=== PATIENT | female | born 1960 | race American Indian/Alaskan Native ===

== ENCOUNTER 2016-10-04 09:01 | Emergency (ER) | payer MEDICAID ==
[2016-10-04 09:09] VITALS: BP 140/92; PULSE 74; RESP 18; TEMP 98; O2SAT 97
[2016-10-04 09:10] VITALS: BMI 23.9
--- NOTE | 2016-10-04 09:44 | ED PDOC ---
Upper Extremity Pain/Injury Time Seen by Provider: 10/04/16 09:25 Chief Complaint (Nursing): Upper Extremity Problem/Injury Chief Complaint (Provider): Wrist pain History Per: Patient History/Exam Limitations: no limitations Onset/Duration Of Symptoms: Days (Yesterday) Current Symptoms Are (Timing): Still Present Additional Complaint(s): L wrist pain going into the the hand. Started hurting after lifting a gallon of water and then dropping it. Did not land on hand but possibly twisted it. No numbness, tingles, weakness. Has chronic right wrist pain, which pt. is on percocet for. No chest pain, drugs, etoh. Past Medical History Reviewed: Nursing Documentation, Vital Signs Vital Signs: Last Vital Signs Temp 98.0 F 10/04/16 09:08 Pulse 74 10/04/16 09:08 Resp 18 10/04/16 09:08 BP 140/92 H 10/04/16 09:08 Pulse Ox 97 10/04/16 09:08 - Medical History PMH: Asthma, HIV, HTN Other PMH: chronic pain - Surgical History Surgical History: (x 3) Other surgeries: wrist surgery - Family History Family History: States: Unknown Family Hx - Living Arrangements Living Arrangements: With Family - Social History Alcohol: None Drugs: Denies - Home Medications Home Medications: Ambulatory Orders Medication Instructions Recorded Ibuprofen [Motrin] 600 mg PO TID 7 Days 10/04/16 - Allergies Allergies/Adverse Reactions: Allergies Allergy/AdvReac Type Severity Reaction Status Date / Time No Known Allergies Allergy Verified 09/22/15 14:59 Review of Systems Constitutional: Negative for: Weakness Cardiovascular: Negative for: Chest Pain Musculoskeletal: Positive for: Arm Pain, Hand Pain. Negative for: Neck Pain, Shoulder Pain, Back Pain, Leg Pain, Foot Pain Skin: Negative for: Rash, Lesions Neurological: Negative for: Weakness, Numbness Physical Exam - Reviewed Nursing Documentation Reviewed: Yes Vital Signs Reviewed: Yes - Physical Exam Appears: Positive for: Well, Non-toxic, No Acute Distress Skin: Positive for: Normal Color, Warm, DRY Neck: Positive for: Normal, Painless ROM Cardiovascular/Chest: Positive for: Regular Rate, Rhythm Respiratory: Positive for: CNT, Normal Breath Sounds Pulses-Radial (L): 2+ Extremity: Positive for: Normal ROM, Tenderness (L wrist dorsal mild; no swelling or erythema; no snuff box tenderness). Negative for: Pedal Edema Neurologic/Psych: Positive for: Alert, Oriented. Negative for: Motor/Sensory Deficits (has full range of motion) - ECG O2 Sat by Pulse Oximetry: 97 Pulse Ox Interpretation: Normal - Radiology X-Ray: Interpreted by Me, Viewed By Me X-Ray Interpretation: No Acute Disease - Progress ED Course And Treament: 1111: Stable. AAOx3. Improved pain. Has underlying chronic pain. Fu with pain management. Disposition - Clinical Impression Clinical Impression: Wrist injury - Patient ED Disposition Is Patient to be Admitted: No Counseled Patient/Family Regarding: Studies Performed, Diagnosis, Need For Followup, Rx Given - Disposition Referrals: [facility] [Outside] - 10/07/16 Disposition: Routine/Home Disposition Time: 11:11 Condition: STABLE Additional Instructions: Return if not better in 3 days. Prescriptions: Ibuprofen [Motrin] 600 mg PO TID 7 Days Instructions: Wrist Injury (ED)
--- NOTE | 2016-10-04 12:11 | RAD ---
PROCEDURE: Left Wrist Radiographs. HISTORY: pain COMPARISON: None. FINDINGS: BONES: Normal. No fracture. JOINTS: Normal. No dislocation. SOFT TISSUES: Normal. OTHER FINDINGS: None. IMPRESSION: No radiographic evidence of acute fracture or dislocation.
== END 2016-10-04 11:56 | disposition home or self-care (01) ==
LOC: H.ER 09:01
DX: M25.532 Pain in left wrist (principal); G89.29 Other chronic pain; I10 Essential (primary) hypertension; J45.909 Unspecified asthma, uncomplicated

== ENCOUNTER 2018-02-14 06:29 | Emergency (ER) | payer MEDICAID ==
[2018-02-14 06:29] VITALS: BMI 23.9
--- NOTE | 2018-02-14 08:49 | ED PDOC ---
Lower Extremity Pain/Injury Time Seen by Provider: 02/14/18 07:58 Chief Complaint (Nursing): Lower Extremity Problem/Injury History Per: Patient Additional Complaint(s): 57 y/o F presents to ED complaining of R knee pain since yesterday after a fall. Pt explains her R knee gave out while walking and fell over her R side to the floor. Pain is 9/10, constant, sharp and pressure-like, and not alleviating. Pt takes PO Oxycodone chronically as she had a R forearm fracture 5 years ago that required surgery. Pt explains taking Oxycodone not daily but at least twice a week when pain is severe. Last dose yesterday but no alleviation of pain. Pt went to PMD this morning and was sent here for acute care. Pt denies R hip pain, numbness, tingling or burning sensation. ROS: all systems reviewed and negative except as above. PMD: Dr Burgess at [facility] Meds: HIV med, oxycodone. NKA PMHx: HIV infection, asthma PSHx: R forearm fracture and FHx: NC SHx: denied alcohol, tobacco or rec drugs. Past Medical History - Medical History PMH: Asthma, HIV, HTN - Surgical History Surgical History: (x 3) - Family History Family History: States: Unknown Family Hx - Home Medications Home Medications: Ambulatory Orders Medication Instructions Recorded Ibuprofen [Motrin] 600 mg PO TID 7 Days tab 10/04/16 Naproxen [Naprosyn] 500 mg PO Q12H #20 tab 02/14/18 - Allergies Allergies/Adverse Reactions: Allergies Allergy/AdvReac Type Severity Reaction Status Date / Time No Known Allergies Allergy Verified 09/22/15 14:59 Review of Systems Constitutional: Negative for: Fever, Chills, Sweats Eyes: Negative for: Pain ENT: Negative for: Nose Congestion, Throat Pain Cardiovascular: Negative for: Chest Pain, Palpitations Respiratory: Negative for: Cough, Shortness of Breath Gastrointestinal: Negative for: Nausea, Vomiting, Abdominal Pain, Diarrhea, Constipation Musculoskeletal: Positive for: Leg Pain (R knee and lower leg pain.). Negative for: Back Pain Skin: Negative for: Rash Neurological: Negative for: Numbness, Dizziness Physical Exam - Physical Exam Appears: Positive for: No Acute Distress Head Exam: Positive for: ATRAUMATIC, NORMAL INSPECTION Eye Exam: Positive for: Normal appearance, EOMI Neck: Positive for: Normal, Painless ROM, Supple Cardiovascular/Chest: Positive for: Regular Rate, Rhythm Respiratory: Positive for: Normal Breath Sounds Gastrointestinal/Abdominal: Positive for: Normal Exam, Bowel Sounds, Soft. Negative for: Tenderness Extremity: Positive for: Other (R knee: presence of ecchymosis over lateral knee, tender to palpation over patella and lateral area, SILT, reduced active ROM due to pain, Lisette's negative, Varus and Valgus stress test appears to be negative, patellar reflex intact. ) Medical Decision Making Medical Decision Making: At 08:30, after examining patient, no R hip pain. --will administer Toradol foe pain and inflammation --X-ray of R knee. At 09:10, X-ray of knee was reviewed and results discussed with patient. No fracture on X-ray. Pt reports pain has improved with medication. --Pt instructed to follow conservative management, use of a victorino bandage for support on knee and take Naproxen for pain and anti-inflammation. --Pt discharged home, instructed to return if no improvement of pain in 3 days, return to PMD within 1 week for f/u. Disposition - Clinical Impression Clinical Impression: Knee sprain - Patient ED Disposition Is Patient to be Admitted: No - Disposition Disposition: Routine/Home Disposition Time: 09:18 Condition: IMPROVED Prescriptions: Naproxen [Naprosyn] 500 mg PO Q12H #20 tab Instructions: Knee Sprain (DC) Forms: [employer] (Greek)
--- NOTE | 2018-02-14 08:54 | RAD ---
Date of service: 02/14/2018 PROCEDURE: Right Knee Radiographs. HISTORY: R knee pain s/p fall COMPARISON: None. FINDINGS: BONES: Normal. No fracture. JOINTS: Very mild degenerative changes. No loose body identified. No tibial plateau depression. JOINT EFFUSION: None. OTHER FINDINGS: None. IMPRESSION: No evidence of fracture.
[2018-02-14 09:20] VITALS: BP 137/82; PULSE 67; RESP 16; TEMP 98.3; O2SAT 98
== END 2018-02-14 09:16 | disposition home or self-care (01) ==
LOC: H.ER 06:29
DX: S83.91XA Sprain of unspecified site of right knee, initial encounter (principal); W19.XXXA Unspecified fall, initial encounter; Y92.89 Other specified places as the place of occurrence of the external cause; I10 Essential (primary) hypertension
CPT/HCPCS: 73562; 96372; 99284; J1885

== ENCOUNTER 2018-03-08 07:43 | Emergency (ER) | payer MEDICAID ==
[2018-03-08 07:51] VITALS: BMI 26.5
[2018-03-08 07:53] VITALS: TEMP 97.8; O2SAT 98
--- NOTE | 2018-03-08 08:47 | ED PDOC ---
HPI: Back Time Seen by Provider: 03/08/18 08:14 Chief Complaint (Nursing): Back Pain History Per: Patient Georges presents to the ER because of sciatiaca diagnosed by Dr. Matta ([place]) who has been having back pain for 2 weeks now that is not better despite PT BIW x 2 weeks. She has been taking a muscle relaxant that starts with the letter T and Advil 400mg 1-2 times per day. She states numbness in the right leg for the past 2 weeks. There is no trouble with urine or stool. She denies fever, nausea or vomiting. States that insurance would not approve MRI.) History/Exam Limitations: no limitations Past Medical History Reviewed: Historical Data, Nursing Documentation, Vital Signs Vital Signs: Last Vital Signs Temp 97.8 F 03/08/18 07:51 Pulse 83 03/08/18 07:51 Resp 20 03/08/18 07:51 BP 120/84 03/08/18 07:51 Pulse Ox 98 03/08/18 07:51 - Medical History PMH: Asthma, HIV, HTN - Surgical History Surgical History: (x 3) - Family History Family History: States: Unknown Family Hx - Living Arrangements Living Arrangements: With Family - Home Medications Home Medications: Ambulatory Orders Medication Instructions Recorded Ibuprofen [Motrin] 600 mg PO TID 7 Days tab 10/04/16 Naproxen [Naprosyn] 500 mg PO Q12H #20 tab 02/14/18 Cyclobenzaprine [Cyclobenzaprine 10 mg PO TID #30 tab 03/08/18 HCl] Ketorolac Tromethamine [Toradol] 10 mg PO Q6H PRN #19 tab 03/08/18 - Allergies Allergies/Adverse Reactions: Allergies Allergy/AdvReac Type Severity Reaction Status Date / Time No Known Allergies Allergy Verified 09/22/15 14:59 Review of Systems ROS Statement: Except As Marked, All Systems Reviewed And Found Negative Constitutional: Negative for: Fever, Chills Respiratory: Negative for: Cough, Shortness of Breath Gastrointestinal: Negative for: Nausea, Vomiting, Abdominal Pain Genitourinary Female: Negative for: Dysuria Musculoskeletal: Positive for: Back Pain Neurological: Positive for: Numbness (left leg - chronic). Negative for: Weakness Physical Exam - Reviewed Nursing Documentation Reviewed: Yes Vital Signs Reviewed: Yes - Physical Exam Appears: Positive for: Well, Non-toxic, No Acute Distress Head Exam: Positive for: ATRAUMATIC, NORMAL INSPECTION, NORMOCEPHALIC Skin: Positive for: Normal Color, Warm Eye Exam: Positive for: Normal appearance ENT: Positive for: Normal ENT Inspection Neck: Positive for: Normal, Painless ROM Cardiovascular/Chest: Positive for: Regular Rate, Rhythm Respiratory: Positive for: CNT, Normal Breath Sounds Gastrointestinal/Abdominal: Positive for: Normal Exam, Soft Back: Positive for: Normal Inspection. Negative for: Vertebral Tenderness Extremity: Positive for: Normal ROM Neurologic/Psych: Positive for: Alert, Oriented. Negative for: Motor/Sensory Deficits (motor 5/5 at L5/S1; no difference in sensation bilaterally; straight leg lift yields only lumbar pain bilaterally) - ECG O2 Sat by Pulse Oximetry: 98 - Progress Re-evaluation Time: 09:15 Condition: Improving,but remains with symptoms (patient sitting in chair now and wants to be discharged.) Disposition - Clinical Impression Clinical Impression: Back pain - Patient ED Disposition Is Patient to be Admitted: No Doctor Will See Patient In The: Office Counseled Patient/Family Regarding: Diagnosis, Need For Followup, Rx Given - Disposition Referrals: Alex Bright MD [Family Provider] - Disposition: Routine/Home Disposition Time: 09:10 Condition: STABLE Prescriptions: Cyclobenzaprine [Cyclobenzaprine HCl] 10 mg PO TID #30 tab Ketorolac Tromethamine [Toradol] 10 mg PO Q6H PRN #19 tab PRN Reason: Pain, Moderate (4-7) Instructions: Low Back Pain (DC), Back Exercises Forms: [facility] (Albanian) - POA Present On Arrival: None
[2018-03-08 09:42] VITALS: BP 117/82; PULSE 81; RESP 18
== END 2018-03-08 09:36 | disposition home or self-care (01) ==
LOC: H.ER 07:43
DX: M54.9 Dorsalgia, unspecified (principal)
CPT/HCPCS: 96372; 99283; J1885

== ENCOUNTER 2018-07-06 06:28 | Emergency (ER) | payer MEDICAID ==
[2018-07-06 06:28] VITALS: BMI 26.5
[2018-07-06 06:53] VITALS: BP 197/97; PULSE 78; RESP 18; O2SAT 99
--- NOTE | 2018-07-06 07:22 | ED PDOC ---
HPI: Female Pain Time Seen by Provider: 07/06/18 07:04 Chief Complaint (Nursing): Female Genitourinary Chief Complaint (Provider): painful urination History Per: Patient History/Exam Limitations: no limitations Onset/Duration Of Symptoms: Hrs (last night) Current Symptoms Are (Timing): Still Present Associated Symptoms: denies: Fever, Chills, Vomiting, Back Pain Additional Complaint(s): Shy Allison is a 58 year old female, with a past medical history of asthma and HIV positive, who presents to the emergency department complaining of dysuria and frequency ongoing since last night associated with lower abdominal pain. Patient denies any fever, chills, vomiting or back pain. No further medical complaints. PMD: Alex Bright Past Medical History Reviewed: Historical Data, Nursing Documentation, Vital Signs Vital Signs: Last Vital Signs Temp 97.9 F 07/06/18 06:39 Pulse 78 07/06/18 06:39 Resp 18 07/06/18 06:39 BP 197/97 H 07/06/18 06:39 Pulse Ox 99 07/06/18 06:39 - Medical History PMH: Asthma, HIV, HTN - Surgical History Surgical History: (x 3) - Family History Family History: States: Unknown Family Hx - Home Medications Home Medications: Ambulatory Orders Medication Instructions Recorded Ibuprofen [Motrin] 600 mg PO TID 7 Days tab 10/04/16 Naproxen [Naprosyn] 500 mg PO Q12H #20 tab 02/14/18 Cyclobenzaprine [Cyclobenzaprine 10 mg PO TID #30 tab 03/08/18 HCl] Ketorolac Tromethamine [Toradol] 10 mg PO Q6H PRN #19 tab 03/08/18 Sulfamethoxazole/Trimethoprim 1 tab PO BID #20 tab 07/06/18 [Bactrim DS 800 mg-160 mg] - Allergies Allergies/Adverse Reactions: Allergies Allergy/AdvReac Type Severity Reaction Status Date / Time No Known Allergies Allergy Verified 07/06/18 06:46 Review of Systems ROS Statement: Except As Marked, All Systems Reviewed And Found Negative Constitutional: Negative for: Fever, Chills Gastrointestinal: Positive for: Abdominal Pain (LOWER). Negative for: Vomiting Genitourinary Female: Positive for: Dysuria, Frequency Musculoskeletal: Negative for: Back Pain Physical Exam - Reviewed Nursing Documentation Reviewed: Yes Vital Signs Reviewed: Yes - Physical Exam Appears: Positive for: No Acute Distress Head Exam: Positive for: ATRAUMATIC, NORMAL INSPECTION, NORMOCEPHALIC Skin: Positive for: Normal Color, Warm, Dry Eye Exam: Positive for: Normal appearance, EOMI, PERRL Neck: Positive for: Normal, Painless ROM, Supple Cardiovascular/Chest: Positive for: Regular Rate, Rhythm. Negative for: Murmur Respiratory: Positive for: Normal Breath Sounds. Negative for: Respiratory Distress Gastrointestinal/Abdominal: Positive for: Tenderness (suprapubic) Back: Positive for: Normal Inspection. Negative for: L CVA Tenderness, R CVA Tenderness Extremity: Positive for: Normal ROM (upper and lower extremities). Negative for: Deformity, Swelling Neurologic/Psych: Positive for: Alert, Oriented. Negative for: Motor/Sensory Deficits - ECG O2 Sat by Pulse Oximetry: 99 (RA) Pulse Ox Interpretation: Normal Medical Decision Making Medical Decision Making: Time: 07:04 Initial Impression: UTI r/o UTI Initial Plan: --Urine dipstick --Urine culture --Reevaluation Scribe Attestation: Documented by Chacorta Espinal, acting as a scribe for Kali Ceballos MD Provider Scribe Attestation: All medical record entries made by the Scribe were at my direction and personally dictated by me. I have reviewed the chart and agree that the record accurately reflects my personal performance of the history, physical exam, medical decision making, and the department course for this patient. I have also personally directed, reviewed, and agree with the discharge instructions and disposition. Disposition - Clinical Impression Clinical Impression: Urinary tract infection - Patient ED Disposition Is Patient to be Admitted: No Counseled Patient/Family Regarding: Studies Performed, Diagnosis, Need For Followup, Rx Given - Disposition Referrals: [facility] [Outside] Disposition: Routine/Home Disposition Time: 07:30 Condition: FAIR Prescriptions: Sulfamethoxazole/Trimethoprim [Bactrim DS 800 mg-160 mg] 1 tab PO BID #20 tab Instructions: Urinary Tract Infections in Adults Forms: [facility] (Sinhala)
[2018-07-06 07:40] VITALS: TEMP 98.1
== END 2018-07-06 07:35 | disposition home or self-care (01) ==
LOC: H.ER 06:28
DX: N39.0 Urinary tract infection, site not specified (principal); I10 Essential (primary) hypertension